=== PATIENT | male | born 1980 ===

== ENCOUNTER 2019-08-05 07:21 | Day surgery (SDC) | payer OTHER ==
[2019-08-05] VITALS (10 sets, daily range): BP systolic 141–147; BP diastolic 82–109
[~2019-08-05] VITALS: Ht 191 cm; Wt 98.8 kg
[~2019-08-05 07:21] MED LIST: BUPR1TAB44 SL; CHOL20004 PO; CLON0.1T PO; DICY10CA88 PO; HYDR25TA4 PO; HYDR50CA PO; LEVA15HF4 INH; LOPE2CAP PO; MOME17SP BOTHNARES; NAPR-996 PO; OXCA600T9 PO; ceFAZolin 2gm in dextrose, iso 50 ML IV ONE; famotidine 20mg tablet PO ONE; ringers solution, lacted 1,000 ML IV SCH
[2019-08-05] MEDS ORDERED: ringers solution, lacted 1,000 ML IV SCH (08:32)
[2019-08-05] MEDS ORDERED: ondansetron/PF 4mg/2ml inj IV PRN (08:35)
[2019-08-05] MEDS ORDERED: hydrALAZINE 20mg/ml inj. IV PRN (08:35)
[2019-08-05] MEDS ORDERED: labetalol 20mg/4ml (5mg/ml) syringe IV PRN (08:35)
[2019-08-05] MEDS ORDERED: morphine 2 MG/ML inj. syringe IV PRN (08:35)
[2019-08-05] MEDS ORDERED: fentaNYL/PF 50MCG/1 ML 2ML syringe IV PRN ×2 (08:35)
[2019-08-05] MEDS ORDERED: LIDOcaine 1% (10mg/ml) 2ml vial ONE (08:44)
[2019-08-05] MEDS ORDERED: BUPIVAcaine/PF 2.5 mg/ml (0.25%) 30ml vial ONE (11:24)
[2019-08-05] MEDS ORDERED: epiNEPHrine 1 mg/ml 30ml MDV ONE (11:24)
[2019-08-05] MEDS ORDERED: midazolam 2 mg/2 ml injection ONE (11:39)
[2019-08-05] MEDS ORDERED: fentaNYL /PF 50mcg/ml 5ml ampule ONE (11:40)
[2019-08-05] MEDS ORDERED: dexamethasone sod phosphate 10mg/ml inj ONE (11:45)
[2019-08-05] MEDS ORDERED: sevoflurane 250ml liquid IH ONE (11:45)
[2019-08-05] MEDS ORDERED: ROPIVAcaine 0.5% (5mg/ml) 30ml vial ONE (12:03)
[2019-08-05] MEDS ORDERED: rocuronium 10mg/ml inj IV ONE (12:03)
[2019-08-05] MEDS ORDERED: propofol inj 20 ML IV ONE (12:03)
[2019-08-05] MEDS ORDERED: LIDOcaine 2% (20mg/ml) 5ml vial ONE (12:03)
[2019-08-05] MEDS ORDERED: ondansetron/PF 4mg/2ml inj ONE (12:03)
--- NOTE | 2019-08-05 13:03 | NUR ---
[facility] ACCOM[facility]AN[facility] BY ANESTHESIOLOGIST DR DANIEL, REPORT GIVEN. 20 GAUGE PIV RIGHT FA PATENT AND RUNNING LR AT 100 ML/HR.PERIPHERAL PULSES PALPABLE, SKIN WARM AND PINK, VSS, 4X4 WITH TEGADERM CDI L SHOULDER.
[2019-08-05] MEDS: morphine 4 MG/ML inj SYRINge IV PRN ×2 (13:30→13:43)
--- NOTE | 2019-08-05 14:33 | NUR ---
DISREGARD PREVIOUS 1432 NOTE.PT AWAKE AND ALERT WITH PAIN LEVEL AT 4. 20 GAUGE PIV RIGHT FA DC/D CATH TIP INTACT..PERIPHERAL PULSES PALPABLE, SKIN WARM AND PINK, VSS, 4X4 WITH TEGADERM CDI L SHOULDER. DISCHARGE INSTRUCTIONS REVIEWED PT VERBALIZED UNDER STANDING. TRANSPORTED VIA WHEELCHAIR ACCOMPANIED BY OFFICERS TO HALFWAY VEHICLE TO HALFWAY
--- NOTE | 2019-08-05 14:33 | NUR ---
[facility]OMP[facility] BY ANESTHESIOLOGIST DR DANIEL, REPORT GIVEN. 20 GAUGE PIV RIGHT FA PATENT AND RUNNING LR AT 100 ML/HR.PERIPHERAL PULSES PALPABLE, SKIN WARM AND PINK, VSS, 4X4 WITH TEGADERM CDI L SHOULDER.
== END 2019-08-05 14:33 | disposition home or self-care (01) ==
LOC: PAS 07:21 → EEVIPCON 10:15 → PAS 14:33
PROVIDERS: ATTEND Orthopaedic Surgery
DX: S43.432A Superior glenoid labrum lesion of left shoulder, initial encounter (principal); G89.18 Other acute postprocedural pain; J45.909 Unspecified asthma, uncomplicated; I10 Essential (primary) hypertension; F41.9 Anxiety disorder, unspecified; M19.90 Unspecified osteoarthritis, unspecified site; K21.9 Gastro-esophageal reflux disease without esophagitis; Z79.899 Other long term (current) drug therapy; Z86.19 Personal history of other infectious and parasitic diseases; Z88.8 Allergy status to other drugs, medicaments and biological substances; Z88.0 Allergy status to penicillin; X58.XXXA Exposure to other specified factors, initial encounter; Y93.89 Activity, other specified; Y92.89 Other specified places as the place of occurrence of the external cause; Y99.8 Other external cause status
CPT/HCPCS: 29822; 64415; 82948; J0171; J1100; J2001; J2250; J2270; J2405; J2704; J3010; J3490; J7120; A4215; A4565; A4618; A6258; A6449; A7000; J2795